=== PATIENT | female | born 2005 | race Caucasian/White ===

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

== ENCOUNTER 2024-07-30 20:12 | Emergency (ER) | payer OTHER, SELFPAY ==
[2024-07-30 20:13] VITALS: BP 112/72; PULSE 79; RESP 18; TEMP 36.8; O2SAT 99; BMI 41.0
--- NOTE | 2024-07-30 20:24 | EX.ED.DYSGE1 ---
HPI History of Present Illness Chief Complaint: General Illness Informant: patient Onset/Context/Timing Onset: Yesterday Context: Sudden Onset Timing: Continuous Quality: Heaviness Location: Chest Worsened by: Nothing Relieved by: Mucinex DM, nasal spray Narrative Narrative: Patient presents with sore throat, migraine headache, nausea, and chest heaviness that began last night. Patient states that it came on rather suddenly. Patient states she started with a sore throat last night. Patient states it is gotten progressively worse throughout the day today. Patient states she took Mucinex DM and a nasal spray which did help. Patient admits to some subjective chills. Patient denies any shortness of breath or cough. Patient denies any palpitations. Patient denies any urinary complaints. [facility] Medical History (Updated 07/30/24 @ 21:[address] Scooby Koehler, DO) Migraine headache Home Medications ?Medication ?Instructions ?Recorded ?Last Taken ?Type NK 01/13/19 Unknown History Allergy/AdvReac Type Severity Reaction Status Date / Time prednisone Allergy Rash Verified 07/30/24 20:13 Surgical History no surgical history no surgical history Social History (Updated 07/30/24 @ 20:[address] Scooby Koehler, DO) Smoking Status: Never smoker Electronic Cigarette Use: with nicotine ROS ROS ED Constitutional Constitutional ED: Reports chills and subjective; Denies fever(s) Eyes Eyes: Denies blurry vision or change in vision ENT ENT ED: Reports sore throat; Denies rhinorrhea Cardiovascular Cardiovascular: Reports chest pain; Denies palpitations Respiratory/Chest Respiratory/Chest: Denies cough or dyspnea Gastrointestinal Gastrointestinal: Reports nausea; Denies vomiting Genitourinary Genitourinary ED: Denies dysuria or hematuria Musculoskeletal Musculoskeletal: Reports back pain; Denies neck pain Integumentary Denies abscess or rash Neurologic Neurologic: Reports headache(s); Denies weakness Allergic/Immunologic Allergic/Immunologic ED: Denies mouth swelling or urticaria EXAM Physical Exam Const Vital Signs: 07/30/24 20:13 07/30/24 21:13 Temperature 98.2 F Temperature Source Oral Pulse Rate 79 Respiratory Rate 18 Respiratory Effort Normal Non-Labored Respiratory Pattern Normal Blood Pressure 112/72 Blood Pressure Mean 85 Pulse Ox 99 Oxygen Delivery Method Room Air Positive well nourished and well developed General Appearance ED: well developed and NAD HEENT Reports moist mucous membranes Neck supple and no JVD Resp normal respiratory effort and clear to auscultation bilaterally Cardio regular rate and regular rhythm GI non-tender and non-distended Palpation: soft Neuro oriented x3, CN's II-XII intact bilaterally and no sensory deficits noted Sensorium / Orientation: alert Motor Exam: strength 5/5 throughout Psych mental status grossly normal MDM MDM MDM Narrative Medical decision making narrative: Differential diagnosis includes pneumonia, viral illness, bronchitis, upper respiratory infection, and migraine headache. Chest x-ray will be obtained to assess for pneumonia or bronchitis. COVID-19, influenza, and RSV PCR will be obtained to assess for viral illness. Lab Data Attestation: I reviewed the patient's lab results. Lab results narrative: COVID-19 PCR was reviewed and was negative. Influenza PCR was reviewed and was negative for influenza A and influenza B. RSV PCR was reviewed and was negative. Radiography Chest X-Ray - ED: 2 View, Read by ED Physician, Read by Radiologist and No Acute Disease Diagnostic Testing: Clinical Impression(s) from Imaging Studies Chest X-Ray 07/30/24 20:29 IMPRESSION: No radiographic evidence of acute cardiopulmonary disease. Electronically Signed: Eliecer Harley MD at 21:24 EST , PA and lateral chest x-ray was obtained. There are 2 views. On my independent interpretation, lung barry are clear. There is normal cardiac silhouette. Bony thorax is normal. There is no acute process noted. Radiologist also interpreted the x-ray and agrees. Treatment and Re-Evaluation :: Nicotine cessation was discussed. Patient was given IV fluids, Reglan, and Benadryl. Patient was sleeping comfortably on reevaluation. Patient and significant other were advised of the findings. Patient and significant other were advised that this is most likely a viral illness. Patient and significant other were instructed to rest in a dark quiet room. Patient was instructed to follow-up with her primary care physician in 5 to 7 days. Patient understood and was agreeable with the plan. All questions were answered. Discharge Plan Triage Chief Complaint: General Illness ED Provider: Scooby Koehler Dx/Rx/DC Orders Clinical Impression: Viral respiratory illness, Migraine headache Instructions: ED, Migraine (Classical), ED URI, Viral, No Abx (Adult) Prescriptions: No Action NK Primary Care Provider: Alfredo Rodriguez Referrals: Alfredo Rodriguez DO [Primary Care Provider] - 5-7 Days Print Language: Mohawk Disposition Disposition: Home, Self Care
--- NOTE | 2024-07-30 20:29 | RAD_ITS ---
EXAM: XR CHEST, 2 VIEWS CLINICAL INDICATION: Chest pain TECHNIQUE: Frontal and lateral views of the chest. COMPARISON: No relevant prior studies available. FINDINGS: LUNGS AND PLEURAL SPACES: Unremarkable. No consolidation or edema. No pneumothorax. No effusion. HEART: Unremarkable. Cardiac silhouette not enlarged. MEDIASTINUM: Central airways and mediastinal contour are unremarkable. BONES/JOINTS: Unremarkable. No acute fracture. SOFT TISSUES: Unremarkable. RAD/Chest PA and Lateral IMPRESSION: No radiographic evidence of acute cardiopulmonary disease. Electronically Signed: Eliecer Harley MD at 21:24 EST ,
[2024-07-30] MEDS: DiphenhydrAMINE 50 MG/ML Syringe 25 MG IV (20:43)
[2024-07-30] MEDS: Metoclopramide 10 MG/2 ML Vial IV (20:43)
== END 2024-07-30 21:56 | disposition home or self-care (01) ==
PROVIDERS: Emergency Provider Emergency Medicine; PCP Internal Medicine; Visit Provider Emergency Medicine
DX: J98.8 Other specified respiratory disorders (principal); G43.909 Migraine, unspecified, not intractable, without status migrainosus; F17.290 Nicotine dependence, other tobacco product, uncomplicated
CPT/HCPCS: 71046; 87631; 96374; 96375; 99282; A4216